=== PATIENT | male | born 1960 | race Caucasian/White ===

== ENCOUNTER → 2020-12-30 | Outpatient (CLI) | payer BC ==
[2020-09-20 15:14] VITALS: BP 131/65
[~2020-12-30] MED LIST: AMLO-187 PO; AMOX1TAB11 PO; ATEN50TA PO; DOXY100T PO; FLUT1DIS IH; IPRA4AER IH; PRED-220 PO; WARF7.5T45 PO
--- NOTE | 2020-12-30 15:42 | RAD ---
EXAM: XR CHEST 2V 12/30/2020 3:23 PM CLINICAL INDICATION: Pneumonia COMPARISON: Chest radiograph 09/16/2020 TECHNIQUE: PA and lateral views of the chest FINDINGS: The heart and mediastinum are normal. Lungs are well-expanded. Left basilar consolidation has near completely resolved. There are minimal residual left retrocardiac opacities. The right lung is clear. No pleural effusion or pneumothorax. No pulmonary edema. No acute osseous abnormality. IMPRESSION: Nearly resolved left lower lobe pneumonia. Electronically signed by: Tamara Toribio MD (12/30/2020 3:40 PM) [id number]
== END ==
LOC: RAD 15:10
PROVIDERS: ATTEND Internal Medicine Critical Care Medicine
DX: J18.9 Pneumonia, unspecified organism (principal)
CPT/HCPCS: 71046